=== PATIENT | female | born 1955 | race Caucasian/White ===

== ENCOUNTER 2017-11-17 12:31 | Emergency (ER) | payer BC ==
[~2017-11-17] VITALS: Ht 160 cm; Wt 61.5 kg
[2017-11-17] MEDS ORDERED: SODIUM CHLOR 0.9% 1000 ML INJ 1,000 ML IV ONE (12:39)
[2017-11-17] MEDS ORDERED: SODIUM CHLORIDE 0.9% FLUSH 10 ML FLUSH IVF PRN (12:45)
[2017-11-17 12:47] VITALS: BP 139/84; PULSE 87; RESP 18; TEMP 97.5; O2SAT 97
--- NOTE | 2017-11-17 12:50 | PD ---
HPI Chief Complaint: Syncope Time Seen by Provider: 12:38 Travel History International Travel<30 days: No Contact w/Intl Traveler<30days: No History of Present Illness HPI This is an otherwise healthy 62-year-old female who presents after a syncopal episode. She states that she was in her usual state of health until this afternoon. She was at a car show outside and was feeling very overheated. She began to feel lightheaded. She decided to sit down. She thought she was feeling better so she stood up and again felt lightheaded. Someone gave her a diet Pepsi and she remembers feeling nauseated. She had a very brief syncopal episode and did not sustain any trauma. She had a single episode of nausea and nonbilious, nonbloody emesis. She feels much better now. She states that she has been otherwise well recently without fever, chills, cough, congestion, vomiting, diarrhea, urinary urgency, frequency, dysuria, hematuria.. She has had a piece of bread with peanut butter and part of a cookie prior to this happening but had not otherwise eaten today. She states that she rarely drinks water and drinks a large amount of diet soda. She also drinks at least 6 beers tonight. Last alcohol was last night. She denies headache, neck pain or stiffness. No focal weakness, numbness, tingling. No chest pain or shortness of breath. No abdominal pain. No melena or hematochezia. Symptoms are moderate in severity. Onset gradual. Aggravated by standing. Alleviated by being supine. Patient arrives EMS. Her glucose in the field was not low. No prior treatment. Patient states that she has had a similar episode in the past. Patient denies lower extremity edema, calf pain, immobility, history of DVT or PE. PFSH Past Medical History Medical History: Denies Significant Hx Past Surgical History Tonsillectomy: Yes Social History Alcohol Use: Yes (at least 6 beers a day) Tobacco Use: No (quit) Substance Use: No Allergies-Medications (Allergen,Severity, Reaction): Coded Allergies: No Known Allergies (Unverified , 11/17/17) Review of Systems Except as stated in HPI: all other systems reviewed are Neg Physical Exam Narrative GENERAL: Alert, well nourished, well appearing patient resting on the bed in no acute distress. Vital Signs reviewed SKIN: Focused skin assessment warm/dry. HEAD: Atraumatic. Normocephalic. EYES: Pupils equal and round. No scleral icterus. No injection or drainage. ENT: No nasal bleeding or discharge. Mucous membranes pink and moist. NECK: Trachea midline. No JVD. Spontaneous, painless full range of motion with no meningismus CARDIOVASCULAR: Regular rate and rhythm. No murmur appreciated. Extremities warm and well perfused with bounding peripheral pulses RESPIRATORY: No accessory muscle use. Clear to auscultation. Breath sounds equal bilaterally. Breathing easily and speaking in full sentences GASTROINTESTINAL: Abdomen soft, non-tender, nondistended. Normal bowel sounds. No rigid, rebound, guarding MUSCULOSKELETAL: No obvious deformities. No clubbing. No cyanosis. No edema. Compartments are soft NEUROLOGICAL: Awake and alert. No obvious cranial nerve deficits. Motor grossly within normal limits. Normal speech. Sensation intact. Normal gait. No pronator drift PSYCHIATRIC: Appropriate mood and affect; insight and judgment normal. Data Data Last Documented VS Vital Signs Date Time Temp Pulse Resp B/P (MAP) Pulse Ox O2 Delivery O2 Flow Rate FiO2 11/17/17 13:51 90 18 146/80 (102) 99 11/17/17 12:47 97.5 Orders Orders Electrocardiogram (11/17/17 12:39) Complete Blood Count With Diff (11/17/17 12:39) Comprehensive Metabolic Panel (11/17/17 12:39) Magnesium (Mg) (11/17/17 12:39) Ckmb (Isoenzyme) Profile (11/17/17 12:39) Troponin I (11/17/17 12:39) Act Partial Throm Time (Ptt) (11/17/17 12:39) Prothrombin Time / Inr (Pt) (11/17/17 12:39) Urinalysis - C+S If Indicated (11/17/17 12:39) Chest, Single Ap (11/17/17 12:39) Ct Brain W/O Iv Contrast(Rout) (11/17/17 12:39) Blood Glucose (11/17/17 12:39) Ecg Monitoring (11/17/17 12:39) Iv Access Insert/Monitor (11/17/17 12:39) Oximetry (11/17/17 12:39) Sodium Chloride 0.9% Flush (Ns Flush) (11/17/17 12:45) Sodium Chlor 0.9% 1000 Ml Inj (Ns 1000 M (11/17/17 12:39) Orthostatic Vital Signs (11/17/17 12:39) Urine Culture (11/17/17 14:05) Labs Laboratory Tests Test 11/17/17 13:00 11/17/17 14:05 White Blood Count 5.5 TH/MM3 Red Blood Count 4.09 MIL/MM3 Hemoglobin 12.9 GM/DL Hematocrit 37.8 % Mean Corpuscular Volume 92.4 FL Mean Corpuscular Hemoglobin 31.6 PG Mean Corpuscular Hemoglobin Concent 34.2 % Red Cell Distribution Width 12.8 % Platelet Count 216 TH/MM3 Mean Platelet Volume 6.8 FL Neutrophils (%) (Auto) 72.5 % Lymphocytes (%) (Auto) 17.2 % Monocytes (%) (Auto) 9.3 % Eosinophils (%) (Auto) 0.2 % Basophils (%) (Auto) 0.8 % Neutrophils # (Auto) 4.1 TH/MM3 Lymphocytes # (Auto) 0.9 TH/MM3 Monocytes # (Auto) 0.5 TH/MM3 Eosinophils # (Auto) 0.0 TH/MM3 Basophils # (Auto) 0.0 TH/MM3 CBC Comment DIFF FINAL Differential Comment Prothrombin Time 11.3 SEC Prothromb Time International Ratio 1.1 RATIO Activated Partial Thromboplast Time 25.5 SEC Blood Urea Nitrogen 11 MG/DL Creatinine 0.81 MG/DL Random Glucose 139 MG/DL Total Protein 8.3 GM/DL Albumin 4.1 GM/DL Calcium Level 9.0 MG/DL Magnesium Level 2.0 MG/DL Alkaline Phosphatase 92 U/L Aspartate Amino Transf (AST/SGOT) 56 U/L Alanine Aminotransferase (ALT/SGPT) 36 U/L Total Bilirubin 1.1 MG/DL Sodium Level 127 MEQ/L Potassium Level 3.7 MEQ/L Chloride Level 92 MEQ/L Carbon Dioxide Level 27.1 MEQ/L Anion Gap 8 MEQ/L Estimat Glomerular Filtration Rate 71 ML/MIN Total Creatine Kinase 34 U/L Troponin I LESS THAN 0.02 NG/ML Urine Collection Type CLEAN CATCH Urine Color YELLOW Urine Turbidity SLIGHT Urine pH 7.5 Urine Specific [place] 1.014 Urine Protein NEG mg/dL Urine Glucose (UA) NEG mg/dL Urine Ketones NEG mg/dL Urine Occult Blood NEG Urine Nitrite NEG Urine Bilirubin NEG Urine Leukocyte Esterase MOD Urine RBC 0-3 /hpf Urine WBC 25-49 /hpf Urine Squamous Epithelial Cells > 8 /hpf Urine Renal Epithelial Cells 0-5 /hpf Urine Bacteria FEW /hpf Microscopic Urinalysis Comment CULTURE INDICATED Urine Collection Time 14:05 [facility] Medical Decision Making Medical Screen Exam Complete: Yes Emergency Medical Condition: Yes Medical Record Reviewed: Yes Interpretation(s) EKG shows sinus rhythm with a rate of 85. No acute ST elevation Laboratory Tests Test 11/17/17 13:00 11/17/17 14:05 White Blood Count 5.5 TH/MM3 Red Blood Count 4.09 MIL/MM3 Hemoglobin 12.9 GM/DL Hematocrit 37.8 % Mean Corpuscular Volume 92.4 FL Mean Corpuscular Hemoglobin 31.6 PG Mean Corpuscular Hemoglobin Concent 34.2 % Red Cell Distribution Width 12.8 % Platelet Count 216 TH/MM3 Mean Platelet Volume 6.8 FL Neutrophils (%) (Auto) 72.5 % Lymphocytes (%) (Auto) 17.2 % Monocytes (%) (Auto) 9.3 % Eosinophils (%) (Auto) 0.2 % Basophils (%) (Auto) 0.8 % Neutrophils # (Auto) 4.1 TH/MM3 Lymphocytes # (Auto) 0.9 TH/MM3 Monocytes # (Auto) 0.5 TH/MM3 Eosinophils # (Auto) 0.0 TH/MM3 Basophils # (Auto) 0.0 TH/MM3 CBC Comment DIFF FINAL Differential Comment Prothrombin Time 11.3 SEC Prothromb Time International Ratio 1.1 RATIO Activated Partial Thromboplast Time 25.5 SEC Blood Urea Nitrogen 11 MG/DL Creatinine 0.81 MG/DL Random Glucose 139 MG/DL Total Protein 8.3 GM/DL Albumin 4.1 GM/DL Calcium Level 9.0 MG/DL Magnesium Level 2.0 MG/DL Alkaline Phosphatase 92 U/L Aspartate Amino Transf (AST/SGOT) 56 U/L Alanine Aminotransferase (ALT/SGPT) 36 U/L Total Bilirubin 1.1 MG/DL Sodium Level 127 MEQ/L Potassium Level 3.7 MEQ/L Chloride Level 92 MEQ/L Carbon Dioxide Level 27.1 MEQ/L Anion Gap 8 MEQ/L Estimat Glomerular Filtration Rate 71 ML/MIN Total Creatine Kinase 34 U/L Troponin I LESS THAN 0.02 NG/ML Urine Collection Type CLEAN CATCH Urine Color YELLOW Urine Turbidity SLIGHT Urine pH 7.5 Urine Specific [place] 1.014 Urine Protein NEG mg/dL Urine Glucose (UA) NEG mg/dL Urine Ketones NEG mg/dL Urine Occult Blood NEG Urine Nitrite NEG Urine Bilirubin NEG Urine Leukocyte Esterase MOD Urine RBC 0-3 /hpf Urine WBC 25-49 /hpf Urine Squamous Epithelial Cells > 8 /hpf Urine Renal Epithelial Cells 0-5 /hpf Urine Bacteria FEW /hpf Microscopic Urinalysis Comment CULTURE INDICATED Urine Collection Time 14:05 Last [address] 11/17/17 1239 Signed Impressions: Service Date/Time: November 13:26 - CONCLUSION: Vermian atrophy. No evidence of acute infarct, hemorrhage, mass or edema. Checo Avila MD Chest X-Ray 11/17/17 1239 Signed Impressions: Service Date/Time: November 12:46 - CONCLUSION: No acute cardiopulmonary abnormality is identified. Harish Sandra MD Differential Diagnosis Orthostatic hypotension, vasovagal episode, syncope, arrhythmia, electrolyte abnormality, hypoglycemia Narrative Course The patient was placed on the supervisor steffen house. IV access was established. EKG , chest x-ray, labs, CT brain were performed. Patient likely has chronic hyponatremia secondary to her large amount of beer intake and chronic dehydration. I reviewed the results of the workup with her including these abnormalities and her mildly elevated LFTs. I strongly recommended that she significantly decrease her alcohol use. She voices understanding. She was given IV fluids in the emergency department with marked improvement. Upon reexamination at 3:10 PM: She is resting comfortably on the bed, she has been ambulatory in the emergency Department without lightheadedness or recurrent syncope. She is no longer orthostatic. I offered her admission for further evaluation and care of her syncope. Patient is adamant that she does not want to be admitted. She would like to be discharged with close outpatient follow- up. She will increase her fluid intake, decrease her alcohol use. Patient understands the importance of close outpatient follow-up. She understands she may require further testing and treatment as an outpatient. She understands strict return indications. She is comfortable with this plan and eager to go home. Diagnosis Primary Impression: Syncope Qualified Codes: R55 - Syncope and collapse Additional Impressions: Orthostatic hypotension Hyponatremia Referrals: Primary Care Physician 1 day Patient Instructions: Dehydration (DC), General Instructions, Hyponatremia (ED) , Syncope (DC) Additional Instructions: Drink plenty of water to stay well-hydrated. It is very important to significantly reduce your alcohol intake and eventually stop all alcohol. Your sodium was low today and your liver enzymes are slightly elevated. You need to follow up closely with your primary physician within the next 1-4 days. They will need to monitor these levels closely. We did offer you admission to the hospital. Please return immediately if you change your mind or have lightheadedness, chest pain, other concerns. We are happy to see you at any time. Med/Other Pt SpecificInfo: No Change to Meds Disposition: 01 DISCHARGE HOME Condition: Stable Isabel Hussein MD Nov 17, 2017 12:50
[2017-11-17 12:52] VITALS: O2SAT 97
--- NOTE | 2017-11-17 13:02 | RADRPT ---
EXAM DATE/TIME: 11/17/2017 12:46 [facility] COMPARISON: No previous studies available for comparison. INDICATIONS : Syncopal episode. MEDICAL HISTORY : None. SURGICAL HISTORY : Tonsillectomy. ENCOUNTER: Initial ACUITY: 1 day PAIN SCORE: 0/10 LOCATION: chest FINDINGS: Portable AP view of the chest demonstrates a normal-sized cardiac silhouette. The lungs demonstrate n o definite effusion, consolidation, or pneumothorax. The bones and soft tissues demonstrate no acute finding. EKG lines overlie the patient. CONCLUSION: No acute cardiopulmonary abnormality is identified. Harish Sandra MD on November 17, 2017 at 12:59 Board Certified Radiologist. This report was verified electronically.
[2017-11-17 13:07] VITALS: BP_SYST 127; BP_SYST 128; BP_SYST 75; BP_DIAS 48; BP_DIAS 76; BP_DIAS 84; RESP 16; RESP 18
[2017-11-17 13:08] LABS: AUTOMATED NEUTROPHIL # 4.1 TH/MM3 (1.8-7.7); BASOPHIL % 0.8 % (0.0-2.0); EOSINOPHIL % 0.2 % (0.0-4.0); HEMATOCRIT 37.8 % (35.0-46.0); HEMOGLOBIN 12.9 GM/DL (11.6-15.3); LYMPH % 17.2 % (9.0-44.0); LYMPHOCYTE # 0.9 TH/MM3 (1.0-4.8); MEAN CELL VOLUME 92.4 FL (80.0-100.0); MEAN CORPUSCULAR HEMOGLOBIN 31.6 PG (27.0-34.0); MEAN CORPUSCULAR HGB CONC 34.2 % (32.0-36.0); MEAN PLATELET VOLUME 6.8 FL (7.0-11.0); MONO % 9.3 % (0.0-8.0); MONOCYTE # 0.5 TH/MM3 (0-0.9); NEUT % 72.5 % (16.0-70.0); PLATELET COUNT 216 TH/MM3 (150-450); RED BLOOD COUNT 4.09 MIL/MM3 (4.00-5.30); RED CELL DISTRIBUTION WIDTH 12.8 % (11.6-17.2); WHITE BLOOD COUNT 5.5 TH/MM3 (4.0-11.0)
[2017-11-17 13:19] LABS: CHLORIDE 92 MEQ/L (98-107); SODIUM (NA) 127 MEQ/L (136-145)
[2017-11-17 13:23] LABS: ALBUMIN 4.1 GM/DL (3.4-5.0); BICARBONATE 27.1 MEQ/L (21.0-32.0); BLOOD UREA NITROGEN 11 MG/DL (7-18); GLUCOSE,RANDOM 139 MG/DL (74-106)
[2017-11-17 13:25] LABS: INTERNATIONAL NORMALIZED RATIO 1.1 RATIO; PROTHROMBIN TIME - PATIENT 11.3 SEC (9.8-11.6)
[2017-11-17 13:26] LABS: ALT (GPT) 36 U/L (10-53); AST (GOT) 56 U/L (15-37); CREATININE 0.81 MG/DL (0.50-1.00); GLOMERULAR FILTRATION RATE 71 ML/MIN (>89)
[2017-11-17 13:27] LABS: TOTAL BILIRUBIN ADULT 1.1 MG/DL (0.2-1.0); TOTAL PROTEIN 8.3 GM/DL (6.4-8.2)
[2017-11-17 13:29] LABS: ALKALINE PHOSPHATASE 92 U/L (45-117)
[2017-11-17 13:31] LABS: TROPONIN I LESS THAN 0.02 NG/ML (0.02-0.05)
[2017-11-17 13:51] VITALS: BP 146/80; PULSE 90; RESP 18; O2SAT 99
--- NOTE | 2017-11-17 14:13 | RADRPT ---
EXAM DATE/TIME: 11/17/2017 13:26 [facility] COMPARISON: No previous studies available for comparison. INDICATIONS : Syncopal episode. RADIATION DOSE: 56.28 CTDIvol (mGy) MEDICAL HISTORY : None SURGICAL HISTORY : None. ENCOUNTER: Initial ACUITY: 1 day PAIN SCALE: 0/10 LOCATION: cranial TECHNIQUE: Multiple contiguous axial images were obtained of the head. Using automated exposure control and adj ustment of the mA and/or kV according to patient size, radiation dose was kept as low as reasonably a chievable to obtain optimal diagnostic quality images. DICOM format image data is available electro nically for review and comparison. FINDINGS: CEREBRUM: The ventricles are normal for age. No evidence of midline shift, mass lesion, hemorrhage or acute in farction. No extra-axial fluid collections are seen. POSTERIOR FOSSA: Significant volume loss is noted along the vermis. The cerebellum and brainstem are otherwise intact. The 4th ventricle is midline. The cerebellopontine angle is unremarkable. EXTRACRANIAL: The visualized portion of the orbits is intact. SKULL: The calvaria is intact. No evidence of skull fracture. CONCLUSION: Vermian atrophy. No evidence of acute infarct, hemorrhage, mass or edema. Checo Avila MD on November 17, 2017 at 14:08 Board Certified Radiologist. This report was verified electronically.
[2017-11-17 15:03] LABS: BILIRUBIN, URINE NEG (NEG); BLOOD, URINE NEG (NEG); GLUCOSE,URINE NEG (NEG); KETONE, URINE NEG (NEG); NITRITE,URINE NEG (NEG); PH, URINE 7.5 (5.0-8.5); URINE LEUKOCYTE ESTERASE MOD (NEG)
[2017-11-17 15:04] LABS: URINE COLOR YELLOW (YELLW/STRAW)
[2017-11-17 15:06] LABS: BACTERIA, URINE FEW /hpf; RBC, URINE 0-3 /hpf (0-3); RENAL EPITHELIAL CELLS 0-5 /hpf; SQUAMOUS EPITHELIAL CELL URINE > 8 /hpf (0-5)
[2017-11-17 16:00] VITALS: BP 136/89
--- NOTE | 2017-11-19 01:44 | EKG ---
Date Performed: 11/17/2017 Time Performed: 12:44:28 PTAGE: 62 years EKG: Sinus rhythm NORMAL ECG NO PREVIOUS TRACING DOCTOR: Adele Whitlock Interpretating Date/Time 11/19/2017 01:43:45
== END 2017-11-17 16:02 | disposition home or self-care (01) ==
LOC: PHED 12:31
DX: R55 Syncope and collapse (principal); E87.1 Hypo-osmolality and hyponatremia; R82.99 Other abnormal findings in urine
CPT/HCPCS: 70450; 71045; 80053; 81001; 82550; 83735; 84484; 85025; 85610; 85730; 87086; 93005; 96360; 99285; J7030